=== PATIENT | female | born 1985 | race Caucasian/White ===

== ENCOUNTER 2016-11-15 22:24 | Emergency (ER) | payer OTHER ==
[~2016-11-15] VITALS: Ht 152.4 cm; Wt 64.9 kg
[~2016-11-15 22:24] MED LIST: ANAPROX DS550 MG PO; CIPRO250 MG PO; CIPROFLOXACIN500 MG PO; COMPAZINE10 MG PO; FIORICET 325 MG1 TAB PO; KEFLEX500 MG PO; KENALOG0.1% TP; MACROBID100 M1 PO; MACRODANTIN100 M1 PO; NAPROSYN500 MG PO; NKHM; PRENATAL1 TA1 PO; PROTONIX40 MG PO; VICODIN 5/500 505 MG PO; ZANTAC150 MG PO; ZOFRAN ODT4 MG SL; ZOFRAN4 MG PO
[2016-11-15] MEDS ORDERED: IBUPROFEN600 MG PO (22:30)
== END 2016-11-16 | disposition home or self-care (01) ==
LOC: ED 22:24
DX: S70.02XA Contusion of left hip, initial encounter (principal); M79.672 Pain in left foot; F17.200 Nicotine dependence, unspecified, uncomplicated; W01.0XXA Fall on same level from slipping, tripping and stumbling without subsequent striking against object, initial encounter; Y93.89 Activity, other specified; Y92.89 Other specified places as the place of occurrence of the external cause; Y99.8 Other external cause status

== ENCOUNTER → 2020-05-31 | Outpatient (CLI) | payer OTHER ==
[~2020-05-31] MED LIST changes: +IBUPROFEN600 MG PO
== END | disposition home or self-care (01) ==
LOC: MAMMO 10:00
PROVIDERS: ATTEND Pediatrics
DX: R60.0 Localized edema (principal); N64.4 Mastodynia; N64.89 Other specified disorders of breast

== ENCOUNTER 2025-03-08 21:33 | Emergency (ER) | payer OTHER ==
[~2025-03-08] VITALS: Ht 152.4 cm; Wt 70.3 kg
[2025-03-08] MEDS ORDERED: Acetaminophen/Oxycodone 5 MG/325 MG TABLET PO ONE (22:15)
[2025-03-08] MEDS ORDERED: PREDNISONE10 M1 PO (23:42)
== END 2025-03-09 | disposition home or self-care (01) ==
LOC: ED 21:33
DX: S93.401A Sprain of unspecified ligament of right ankle, initial encounter (principal); Z79.899 Other long term (current) drug therapy; Z98.890 Other specified postprocedural states; X50.1XXA Overexertion from prolonged static or awkward postures, initial encounter; Y93.89 Activity, other specified; Y92.89 Other specified places as the place of occurrence of the external cause; Y99.8 Other external cause status

== ENCOUNTER → 2025-03-16 | Outpatient (CLI) | payer OTHER ==
[~2025-03-16] MED LIST changes: +PREDNISONE10 M1 PO
== END ==
LOC: RAD 08:14
PROVIDERS: ATTEND Pediatrics
DX: S99.911A Unspecified injury of right ankle, initial encounter (principal); X58.XXXA Exposure to other specified factors, initial encounter; Y93.89 Activity, other specified; Y92.89 Other specified places as the place of occurrence of the external cause; Y99.8 Other external cause status